=== PATIENT | male | born 1990 | race Caucasian/White ===

== ENCOUNTER → 2017-02-17 19:51 | Observation (INO) ==
--- OUTSIDE RECORDS SUMMARY | 2017-02-17 13:17 | External Medical Summary | Referral Summary ---
:1990 Author Organization [facility], [facility] Address [address] [place] [address] [place] [id number] Care Team Providers Name Role Phone Jose Ramon Lomax Primary Care Physician Encounter VC Date(s): 12/31/15 - 12/31/15 [facility], [address] [place] [id number]- Discharge Disposition: 01-Home or Self Care Attending Physician: Kalen Bethea PA-C Admitting Physician: Kalen Bethea PA-C Vital Signs No data available for this section Problem List Condition Effective Dates Status Health Status Informant Acne(Confirmed) Active Overweight(Confirmed) Active TMJ (temporomandibular joint Active disorder)(Confirmed) Chicken pox(Confirmed) 07/13/93 Active Allergies, Adverse Reactions, Alerts No Known Medication Allergies Medications No data available for this section Results No data available for this section Immunizations Vaccine Date Refusal Reason tetanus/diphth/pertuss (Tdap) adult/adol 10/06/06 diphtheria/pertussis, acel/tetanus ped 05/19/95 diphtheria/pertussis, acel/tetanus ped 92 diphtheria/pertussis, whole cell/tetanus 03/11/94 diphtheria/pertussis, whole cell/tetanus 92 haemophilus b conjugate (HbOC) vaccine 03/11/94 haemophilus b conjugate (HbOC) vaccine 92 haemophilus b conjugate (HbOC) vaccine 92 hepatitis A pediatric vaccine 11/02/10 hepatitis A pediatric vaccine 10/01/09 hepatitis B pediatric vaccine 03/11/94 hepatitis B pediatric vaccine 92 hepatitis B pediatric vaccine 92 measles/mumps/rubella virus vaccine 10/01/09 measles/mumps/rubella virus vaccine 03/11/94 meningococcal conjugate vaccine 11/02/10 meningococcal conjugate vaccine 11/06/07 poliovirus vaccine, inactivated 11/02/10 poliovirus vaccine, inactivated 92 poliovirus vaccine, inactivated 92 poliovirus vaccine, live, trivalent 03/11/94 varicella virus vaccine 10/01/09 Procedures Procedure Date Related Diagnosis Body Site Circumcision Social History Social History Type Response Smoking Status Never smoker Assessment and Plan No data available for this section
[2017-02-17 13:30] VITALS: BMI 40.1
[2017-02-17] MEDS: DEXAMETHASONE 4 MG/ML INJECTION IVP SCH ×2 (14:00→17:51)
--- NOTE | 2017-02-17 14:29 | History & Physical Report ---
<Val Powell V - Last Filed: 02/17/17 14:51> History of Present Illness Date: 02/17/17 Chief complaint: Lower ext weakness, urinary retention, visual changes HPI: Fidencio is a 26-year-old male who presented to via [facility] clinic yesterday for evaluation of urinary hesitancy. He returns to the clinic today 02/17/17 for re-evaluation. Labs were obtained at the clinic and CBC was found to be normal at 10.5. Chemistry panel was done to [facility] showing a sodium of 145, potassium 4.3, BUN 13, creatinine 0.8. CK was low at 48. Her scan was performed at the clinic due to patient's complaint of urinary retention and he was found to have 750 ML's of urine in his bladder. A Haddad catheter was then placed. Given these change in neurological symptoms, accompanied with retention. The hospitalist services were contacted and accepted patient for acute direct admission for further evaluation and treatment. Patient presented to [facility] approximately an hour following initial phone call for direct admission. He is brought in a wheelchair. He is noted to have some grimacing on his face. Upon arrival. He was assisted into the bed with 2 person assist and complains of weakness in the lower extremities. He complains of having a frontal headache and acute visual changes that it happened within the last 20 minutes prior to arrival. He describes the visual changes as darkening in his vision. Sputum pupils are noted to be mildly dilated. However, they react slowly bilaterally and equally. Upon acute examination. He is found to have some tenderness in the mid thoracic spine. He also complains of feeling a "ache/discomfort" behind his upper abdomen into his back. Thorough history is obtained. Patient states she noticed late Monday, early Monday having generalized weakness bilaterally to his legs. About that time. He also recognized some urinary hesitancy. He states he would have difficulty initiating urination stream. He does weight lift, however, only lifted weights with his arms previously this week. He is active and does bike riding, and is physically active at work where he does a lot of heavy lifting at [employer] in [place]. He denies having any recent injuries, strains or falls. Upon physical exam, sensation and motor are bilateral and equal in the lower extremities and upper extremities. He has no peritoneal, testicular numbness, however, does feel that his peritoneal area is weak. Patient reports he has had no recent sexual partners. Last intercourse was approximately one month ago. No history of STDs. Denies tobacco or alcohol use. Denies any recreational street drugs. He states that he does utilize a protein shake intermittently with weight lifting. New medications or lifestyle changes. Review of Systems All systems PM: 10-point ROS was reviewed, no additional remarkable complaints except - Constitutional Constitutional: Present: fatigue, headache(s), weakness (bilateral lower ext) - EENMT Eyes: Present: as per HPI, change in vision - Gastrointestinal Gastrointestinal: Present: as per HPI - Genitourinary Genitourinary: Present: difficulty urinating, urinary hesitancy, other ( retention) - Neurological Neurological: Present: as per HPI, abnormal gait, headache(s), weakness ( bilateral lower ext) PFSH None Surgical History: Negative Family History: Noncontributory - Social History Smoking status: Never smoker Substance use type: does not use Alcohol intake frequency: does not drink Current occupational status: employed ([employer]) Current residence: Apartment/Private Home Social history: PCP- [facility] Medications Home Medications Medication Instructions Recorded Confirmed Type Acetaminophen [Tylenol] 3 tab PO PRN 02/17/17 02/17/17 History Ibuprofen 600 mg PO PRN 02/17/17 02/17/17 History Allergies Allergy/AdvReac Type Severity Reaction Status Date / Time No Known Drug Allergies Allergy Mild Verified 02/17/17 13:48 Exam Vital Signs: Temperature 96.5 F L 02/17/17 13:28 Pulse Rate 60 02/17/17 13:28 Respiratory Rate 20 02/17/17 13:28 Blood Pressure 127/71 02/17/17 13:28 Pulse Oximetry 99 02/17/17 13:28 Height/Weight/BMI: Height 1.75 m Weight 123.3 kg Body Mass Index 40.1 - Constitutional Present: no acute distress, well nourished, well developed - Routine HEENT Exam Eye: Present: EOMI, PERRL (slow reaction) ENT: Present: mucous membranes moist, dentition normal - Routine Neck Exam Present: full ROM. Absent: lymphadenopathy - Routine Respiratory Exam Present: CTA bilaterally. Absent: wheezes - Routine Cardiovascular Exam Present: RRR, S1, S2. Absent: murmur - Routine Abdominal Exam Present: soft, normoactive bowel sounds, non distended. Absent: tenderness - Routine Exam Comments: Retinal examination revealed circumcised male with Haddad catheter in place. Patient has normal sensation to inner thighs, bilateral testicles and lower abdomen. - Routine Extremities Exam Present: no edema, non tender, full ROM, pulses intact, normal capillary refill. Absent: calf tenderness - Routine Back/Spine/Pelvis Exam Back/Spine: Present: full ROM, vertebral tenderness (thoracic spine) Back image: 1 - Tender upon palpation - Routine Skin Exam Present: intact, dry, warm - Routine Neurological Exam Present: alert, oriented X3, CN II-XII intact, moving all extremities, vision grossly intact, hearing grossly intact, normal speech. Absent: sensory deficit , motor deficit - Routine Psychiatric Exam Present: normal affect, normal thought process, cooperative Assessment and Plan (1) Bilateral leg weakness Current visit: Yes Status: Acute (2) Urinary retention Current visit: Yes Status: Acute (3) Headache Current visit: Yes Status: Acute DVT Prophylaxis: SCD's Resuscitation Status: Full Code Assessment and Plan: Impression Bilateral lower extremity weakness Acute urinary retention Hypernatremia Thoracic spine tenderness Acute headache Plan Admit patient to outpatient observation under care of Dr. Hunter for further evaluation of acute lower extremity weakness and urinary retention. Patient is examined. Upon arrival to [facility] urgently. Stat MRI of brain, MRI of cervical, thoracic and lumbar spine is obtained. Discussed with Dr. Morales for further neurologic recommendations. Initially keep patient NPO until acute neurologic emergent condition has been ruled out. IV lock placed Decadron 6mg IV every 8 hours Haddad cath intact- was placed at [facility] 1/ NS at 100ml/hr for gently hydration given hypernatremia May require further neurologic workup. Will consult Dr Morales for further direction and recommendations Recheck CBC and BMP tomorrow morning to follow blood counts, electrolytes Orders and plan of care discussed with attending, Dr. Hunter Hospital Course Summary Disclaimer: The visit summary below is not to be considered part of the above Progress Note. <Ole Hunter - Last Filed: 02/17/17 18:47> History of Present Illness Date: 02/17/17 Exam Vital Signs: Temperature 96.5 F L 02/17/17 13:28 Pulse Rate 83 02/17/17 18:00 Respiratory Rate 20 02/17/17 13:28 Blood Pressure 127/71 02/17/17 13:28 Pulse Oximetry 99 02/17/17 13:28 Height/Weight/BMI: Height 1.75 m Weight 123.3 kg Body Mass Index 40.1 Assessment and Plan (1) Bilateral leg weakness Current visit: Yes Status: Acute (2) Urinary retention Current visit: Yes Status: Acute (3) Headache Current visit: Yes Status: Acute Assessment and Plan: Impression Neuromyelitis optic Visual loss Bilateral lower extremity weakness Acute urinary retention Hypernatremia (POA) Thoracic spine tenderness Acute headache Have independently interviewed and examined pt. Chart reviewed. 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 Care plan developed with my supervision; agree with above. Legs started to get weak and rubber 2-3 days ago-progressive since. Noticing more urinary hesitancy. Seen in clinic today as increasing urinary symptoms and more pronounced leg weakness. Given IVF in clinic. Was found to have urninary retention - 750cc in bladder. Enroute from clinic to hospital vision become dark. MRI of Brain, cervical, thorasic and lumber spine show inflammation of optic nerves and spine consistent with neuromyelitis optic. Treatment option is plasma phoresis, not available at [facility]. Discussed case with Dr Lucero (neurology) who does feel transfer to [facility] prudent. Reviewed case with Dr Haddad (Hospitalist) who graciously accepts patient in transfer. Will transfer via [facility]. - Time spent with patient Time with patient PN: 50 minutes Hospital Course Summary Disclaimer: The visit summary below is not to be considered part of the above Progress Note.
--- NOTE | 2017-02-17 17:34 | Magnetic Resonance Report ---
Indication: headache, vision changes PROCEDURE: MR head/brain wo/w con: Encounter: Initial Comparisons: MRI cervical, thoracic and lumbar spine from today Technique: Multiplanar, multisequence, MR imaging of the head with and without contrast was acquired. Contrast: 10 mL of Gadavist FINDINGS: The ventricles are of normal size, shape, and contour for the patient's age. There is abnormal increased T2 signal and enhancement within the optic nerves best seen on coronal T1 fat saturated image 10 and axial T1 fat sat thin slice image #5. The brain stem, cerebellum, and cerebral hemispheres otherwise have a normal morphologic appearance as well as MR signal intensity on all pulse sequences. Following intravenous administration of contrast, no areas of abnormal enhancement are evident. There are no areas of restricted diffusion to suggest an acute infarct. There is no evidence of an intracranial mass lesion, intracranial hemorrhage, or hydrocephalus. The visualized portions of the calvarium, paranasal sinuses, and skull base demonstrate no significant abnormality. IMPRESSION: Bilateral optic neuritis. 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 Findings were reviewed with the ordering physician Dr. Hunter at 1715 on February 17, 2017. .
--- NOTE | 2017-02-17 17:37 | Magnetic Resonance Report ---
Indication: acute neurologic change, LE weakness,Urinary retention PROCEDURE: MR thoracic spine w and wo con: Encounter: Initial Comparison: Brain MRI from today Technique: Multiplanar, multisequence, thoracic spine protocol MR imaging with and without contrast of the spine was acquired. Contrast: 10 mL Gadavist FINDINGS: Alignment of the thoracic spine is within normal limits. The vertebral body heights are maintained. T1 and T2 hyperintense lesion at the T3 vertebra consistent with a hemangioma. No significant degenerative changes within the facet joints and intervertebral disks. The thoracic cord is abnormal with areas of T2 hyperintensity seen at T3-T4 and also smaller areas the T9 and T10 levels. The conus medullaris is thickened with increased T2 signal intensity occupying the central two thirds of the cord. No obvious abnormal postcontrast enhancement seen. IMPRESSION: Multifocal signal abnormality within the thoracic spinal cord with areas of thickening and increased T2 signal intensity. 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 Results were discussed with the clinical service at 1530 on February 17, 2017. .
--- NOTE | 2017-02-17 17:39 | Magnetic Resonance Report ---
Indication: acute neurologic change, lower extremity weakness PROCEDURE: MR cervical spine with and wo con: Encounter: Initial Comparison: None Technique: Multiplanar multisequence MR imaging of the cervical spine was performed with and without contrast. Contrast: 10 mL Gadavist Findings: Alignment of the cervical spine is within normal limits. The cervical spinal cord shows abnormal T2 hyperintensity extending from the C2-C3 level through C7. This is best seen on sagittal image #7. There is a more linear channel of increased signal intensity in the ventral part of the cord that could represent a small syrinx. Marrow signal intensity is normal. No acute fracture. There is a T2 hyperintense lesion partially visualized in the T3 vertebra but incompletely evaluated. This could represent a hemangioma. There is enhancement within the anterior one third of the cord seen extending throughout the cervical spine, best appreciated on sagittal postcontrast image #7. Segmental analysis: C2-C3: Normal C3-C4: Degenerative uncovertebral and hypertrophy resulting in severe right and mild left neural foraminal stenosis. No significant central canal narrowing. C4-C5: Degenerative uncovertebral hypertrophy causing moderate bilateral neural foraminal stenosis. No central canal stenosis. C5-C6: Central disk protrusion effacing the thecal sac with mild central canal narrowing. Degenerative facet and uncovertebral changes contributing to severe bilateral neural foraminal stenosis. C6-C7: Normal C7-T1: Normal Impression: Long segment of spinal cord signal abnormality throughout the majority of the cervical spine. Given the brain findings this is most consistent with neuromyelitis optica. .
--- NOTE | 2017-02-17 17:44 | Magnetic Resonance Report ---
Indication: acute LE weakness, urinary retention PROCEDURE: MR lumbar spine wo/w con: Encounter: Initial Comparison: MRI brain, cervical and thoracic spine from today Technique: Multiplanar multisequence MR imaging of the lumbar spine was performed with and without contrast. Contrast: 10 mL Gadavist Findings: Alignment of the lumbar spine is within normal limits. 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 There is abnormal thickening and increased T2 signal intensity within the conus medullaris best seen on sagittal image #9 involving the central portion, greater than 5 cm in craniocaudal dimension. Conus appears slightly expanded as well .There is a small disk protrusion with high intensity zone noted at the L5-S1 level. The remaining intervertebral discs are normal. Bone marrow signal intensity is normal. No acute fracture. No neural foraminal stenosis. Paraspinal soft tissues are unremarkable. No significant postcontrast enhancement seen within the conus medullaris region of T2 signal abnormality. Impression: Abnormally thickened conus medullaris with increased T2 signal. Given the findings in the brain and remainder of the spine this is most consistent with neuromyelitis optica. .
--- NOTE | 2017-02-17 18:53 | Discharge Summary ---
Discharge Information Date of admission: 02/17/17 13:09 Anticipated date of discharge: 02/17/17 Attending Physician: Ole Hunter MD Primary care physician: Jose Ramon Lomax DO Consults: Dr Morales - Neurology - Discharge Diagnosis (1) Bilateral leg weakness Status: Acute (2) Urinary retention Status: Acute (3) Headache Status: Acute Discharge Diagnosis: Discharge diagnosis Neuromyelitis optic Visual loss Bilateral lower extremity weakness Acute urinary retention Associated conditions and complications Hypernatremia (POA) Thoracic spine tenderness Acute headache - Laboratory Labs: Admit Lab 02/17/17 02/17/17 09:47 14:07 Sodium 147 H Potassium 4.3 Chloride 108 H Carbon Dioxide 26 Anion Gap 13 BUN 13.0 Creatinine 0.8 GFR Calculation 108 BUN/Creatinine Ratio 16 Glucose 107 Calculated Osmolality 282 H Calcium 10.1 Total Bilirubin 0.90 AST 20 ALT 42 Alkaline Phosphatase 89 Creatine Kinase 48 L C-Reactive Protein < 5.0 Total Protein 8.4 H Albumin 4.8 Globulin 3.6 Albumin/Globulin Ratio 1.3 Specimen Hemolysis < 15 - Radiology Radiology: Date of Exam: 02/17/17 PROCEDURE: MR head/brain wo/w con FINDINGS: The ventricles are of normal size, shape, and contour for the patient's age. There is abnormal increased T2 signal and enhancement within the optic nerves best seen on coronal T1 fat saturated image 10 and axial T1 fat sat thin slice image #5. The brain stem, cerebellum, and cerebral hemispheres otherwise have a normal morphologic appearance as well as MR signal intensity on all pulse sequences. Following intravenous administration of contrast, no areas of abnormal enhancement are evident. There are no areas of restricted diffusion to suggest an acute infarct. There is no evidence of an intracranial mass lesion, intracranial hemorrhage, or hydrocephalus. The visualized portions of the calvarium, paranasal sinuses, and skull base demonstrate no significant abnormality. IMPRESSION: Bilateral optic neuritis. 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 Date of Exam: 02/17/17 PROCEDURE: MR cervical spine with and wo con Findings: Alignment of the cervical spine is within normal limits. The cervical spinal cord shows abnormal T2 hyperintensity extending from the C2-C3 level through C7. This is best seen on sagittal image #7. There is a more linear channel of increased signal intensity in the ventral part of the cord that could represent a small syrinx. Marrow signal intensity is normal. No acute fracture. There is a T2 hyperintense lesion partially visualized in the T3 vertebra but incompletely evaluated. This could represent a hemangioma. There is enhancement within the anterior one third of the cord seen extending throughout the cervical spine, best appreciated on sagittal postcontrast image #7. Segmental analysis: C2-C3: Normal C3-C4: Degenerative uncovertebral and hypertrophy resulting in severe right and mild left neural foraminal stenosis. No significant central canal narrowing. C4-C5: Degenerative uncovertebral hypertrophy causing moderate bilateral neural foraminal stenosis. No central canal stenosis. C5-C6: Central disk protrusion effacing the thecal sac with mild central canal narrowing. Degenerative facet and uncovertebral changes contributing to severe bilateral neural foraminal stenosis. C6-C7: Normal C7-T1: Normal Impression: Long segment of spinal cord signal abnormality throughout the majority of the cervical spine. Given the brain findings this is most consistent with neuromyelitis optica. Date of Exam: 02/17/17 PROCEDURE: MR thoracic spine w and wo con FINDINGS: Alignment of the thoracic spine is within normal limits. The vertebral body heights are maintained. T1 and T2 hyperintense lesion at the T3 vertebra consistent with a hemangioma. No significant degenerative changes within the facet joints and intervertebral disks. The thoracic cord is abnormal with areas of T2 hyperintensity seen at T3-T4 and also smaller areas the T9 and T10 levels. The conus medullaris is thickened with increased T2 signal intensity occupying the central two thirds of the cord. No obvious abnormal postcontrast enhancement seen. IMPRESSION: Multifocal signal abnormality within the thoracic spinal cord with areas of thickening and increased T2 signal intensity. 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 Date of Exam: 02/17/17 PROCEDURE: MR lumbar spine wo/w con Findings: Alignment of the lumbar spine is within normal limits. 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 There is abnormal thickening and increased T2 signal intensity within the conus medullaris best seen on sagittal image #9 involving the central portion, greater than 5 cm in craniocaudal dimension. Conus appears slightly expanded as well .There is a small disk protrusion with high intensity zone noted at the L5-S1 level. The remaining intervertebral discs are normal. Bone marrow signal intensity is normal. No acute fracture. No neural foraminal stenosis. Paraspinal soft tissues are unremarkable. No significant postcontrast enhancement seen within the conus medullaris region of T2 signal abnormality. Impression: Abnormally thickened conus medullaris with increased T2 signal. Given the findings in the brain and remainder of the spine this is most consistent with neuromyelitis optica. History of Present Illness HPI: Fidencio is a 26-year-old male who presented to [facility] clinic yesterday for evaluation of urinary hesitancy. He returns to the clinic today 02/17/17 for re-evaluation. Labs were obtained at the clinic and CBC was found to be normal at 10.5. Chemistry panel was done to [facility] showing a sodium of 145, potassium 4.3, BUN 13, creatinine 0.8. CK was low at 48. Her scan was performed at the clinic due to patient's complaint of urinary retention and he was found to have 750 ML's of urine in his bladder. A Haddad catheter was then placed. Given these change in neurological symptoms, accompanied with retention. The hospitalist services were contacted and accepted patient for acute direct admission for further evaluation and treatment. Patient presented to [facility] approximately an hour following initial phone call for direct admission. He is brought in a wheelchair. He is noted to have some grimacing on his face. Upon arrival. He was assisted into the bed with 2 person assist and complains of weakness in the lower extremities. He complains of having a frontal headache and acute visual changes that it happened within the last 20 minutes prior to arrival. He describes the visual changes as darkening in his vision. Sputum pupils are noted to be mildly dilated. However, they react slowly bilaterally and equally. Upon acute examination. He is found to have some tenderness in the mid thoracic spine. He also complains of feeling a "ache/discomfort" behind his upper abdomen into his back. Thorough history is obtained. Patient states she noticed late Monday, early Monday having generalized weakness bilaterally to his legs. About that time. He also recognized some urinary hesitancy. He states he would have difficulty initiating urination stream. He does weight lift, however, only lifted weights with his arms previously this week. He is active and does bike riding, and is physically active at work where he does a lot of heavy lifting at [employer] in [place]. He denies having any recent injuries, strains or falls. Upon physical exam, sensation and motor are bilateral and equal in the lower extremities and upper extremities. He has no peritoneal, testicular numbness, however, does feel that his peritoneal area is weak. Patient reports he has had no recent sexual partners. Last intercourse was approximately one month ago. No history of STDs. Denies tobacco or alcohol use. Denies any recreational street drugs. He states that he does utilize a protein shake intermittently with weight lifting. New medications or lifestyle changes. For complete details of the H&P refer to that document. Objective Vital signs: Temperature 96.5 F L 02/17/17 13:28 Pulse Rate 83 02/17/17 18:00 Respiratory Rate 20 02/17/17 13:28 Blood Pressure 127/71 02/17/17 13:28 Pulse Oximetry 99 02/17/17 13:28 Height/Weight/BMI: Height 1.75 m Weight 123.3 kg Body Mass Index 40.1 Hospital Course This is a general summary of the patient's hospital course. For more details refer to the complete medical record. Hospital course: Admit patient to outpatient observation under care of Dr. Hunter for further evaluation of acute lower extremity weakness and urinary retention. Patient is examined. Upon arrival to [facility] urgently. Stat MRI of brain, MRI of cervical, thoracic and lumbar spine is obtained. Discussed with Dr. Morales for further neurologic recommendations. Initially keep patient NPO until acute neurologic emergent condition has been ruled out. IV lock placed Decadron 6mg IV every 8 hours Haddad cath intact- was placed at [facility]/ NS at 100ml/hr for gently hydration given hypernatremia Ativan 0.5mg IV to help anxiety with MRI. May require further neurologic workup. Will consult Dr Morales for further direction and recommendations Recheck CBC and BMP tomorrow morning to follow blood counts, electrolytes MRI of Brain, cervical, thorasic and lumber spine show inflammation of optic nerves and spine consistent with neuromyelitis optic. Treatment option is plasma phoresis, not available at [facility]. Discussed case with Dr Lucero (neurology) who does feel transfer to [facility] prudent. Reviewed case with Dr Haddad (Hospitalist) who graciously accepts patient in transfer. Will transfer via [facility]. Time spent with patient: discharge greater than 30 minutes Discharge Plan - Med Rec/Dispo Referrals/Follow Up: Jose Ramon Lomax DO [Family Provider] - (Follow up with Dr Lomax for PCP care at discharge from [facility]. ) Prescriptions: New Hydrocodone/APAP 5/325 [Reyno 5/325] 1 tab PO Q4H PRN tablet PRN Reason: Pain Ondansetron Inj [Zofran] 4 mg IVP Q6H PRN vial PRN Reason: Nausea Dexamethasone [Decadron] 6 mg IVP Q8HR ml LORazepam INJ [Ativan Inj] 0.5 mg IVP Q4H PRN vial PRN Reason: Anxiety Continue Acetaminophen [Tylenol] 3 tab PO PRN Ibuprofen 600 mg PO PRN Discharge Instructions/Outpatient Orders: Final Provider Discharge Instructions Location: Determined By Patient - Disposition 02 To [facility] Acute Care - Attestation Attestation Narrative: 02/17/17 19:02 I have independently interviewed and examined patient prior to discharge.
[2017-02-17 19:39] VITALS: BP 139/76; PULSE 101; RESP 18; TEMP 99.3; O2SAT 95
[~2017-02-17 19:51] MED LIST: 1/2 NS 1,000 ML IV SCH; ACETAMINOPHEN 325 MG TABLET PO PRN; GADOBUTROL 10mMol/10ml INJECTION IVP ONE; HYDROCODONE/APAP 5mg/325mg TABLET PO PRN; ONDANSETRON 4 MG/2 ML INJECTION IVP PRN; SALINE FLUSH 10ml SYRINGE ONE
== END | disposition short-term general hospital (02) ==
LOC: MED
PROVIDERS: ADMIT Hospitalist; ATTEND Hospitalist